=== PATIENT | female | born 1955 | race Caucasian/White ===

== ENCOUNTER 2016-06-23 22:48 | Inpatient (IN) | payer MEDICARE, BC ==
[~2016-06-23] VITALS: Ht 170.2 cm; Wt 70.3 kg
[2016-06-23 23:00] VITALS: BP 140/90
[2016-06-24] VITALS (7 sets, daily range): BP systolic 95–140; BP diastolic 57–67
[2016-06-24 00:40] LABS: BASOPHILS % (AUTO) 0.8 % (0.0-2.0); EOSINOPHILS % (AUTO) 0.7 % (0.0-3.0); LYMPHOCYTES % (AUTO) 14.7 % (20.0-45.0); MEAN CORPUSCULAR HEMOGLOBIN 25.8 PG (27.0-31.0); MEAN CORPUSCULAR VOLUME 81 FL (80-99); MEAN PLATELET VOLUME 5.7 FL (6.5-10.1); NEUTROPHILS % (AUTO) 74.7 % (45.0-75.0); PLATELET COUNT 341 K/UL (150-450); RED BLOOD COUNT 4.41 M/UL (4.20-5.40); RED CELL DISTRIBUTION WIDTH 15.1 % (11.6-14.8); WHITE BLOOD COUNT 10.1 K/UL (4.8-10.8)
[2016-06-24 00:43] LABS: APPEARANCE,URINE CLEAR; KETONES,URINE NEGATIVE (NEGATIVE); LEUKOCYTE ESTERASE ,URINE NEGATIVE (NEGATIVE); NITRITE,URINE NEGATIVE (NEGATIVE); PH,URINE 5 (4.5-8.0); PROTEIN,URINE NEGATIVE (NEGATIVE); UROBILINOGEN,URINE NORMAL MG/DL (0.0-1.0)
[2016-06-24 00:51] LABS: ALBUMIN/GLOBULIN RATIO 0.9 (1.0-2.7); CALCIUM 9.2 mg/dL (8.6-10.2); GLOMERULAR FILTRATION RATE 56.8 mL/min (>60); POTASSIUM 4.6 mEQ/L (3.4-4.9); TOTAL PROTEIN 7.1 g/dL (6.6-8.7)
[2016-06-24 00:52] LABS: RBC,URINE 0-2 /HPF (0 - 2); WBC,URINE 0 /HPF (0 - 2)
[2016-06-24 01:18] LABS: TROPONIN I < 0.30 ng/mL (<=0.30)
--- NOTE | 2016-06-24 02:23 | Emergency Room Report ---
History of Present Illness General Chief Complaint: Overdose Source: Patient, Friend, EMS Present Illness HPI Is a 60-year-old female with multiple medical problem. She has history of rheumatoid arthritis and was on methotrexate. Also was on steroid. Does medicine were held because she get frequent infection on her knees secondary to previous surgery. She just finished a 6 week course of vancomycin and then 2 weeks course of daptomycin. She presents with chief complaint is altered mental status. Per her friends, she appear to be very sleepy and hard to arouse tonight. They did not know if she was taking too much of her pain medication. She has been bedbound and nonweightbearing on her left leg. It was placed in a knee immobilizer. Now she complaining of right Achilles pain. she has a history of partial tear in that Achilles. Per EMS, she was missing some of her [place] pill. Later when patient was more awake and her friend also said that sometimes she jumped on the floor. She said she did not take anything today. She does have a history of seizure but no seizure activity. EMS gave her 2 mg of narcan w/o relief. Allergies: Coded Allergies: BUPIVACAINE (Verified Allergy, Mild, 04/30/09) UNABLE TO ASSESS (Unverified , 06/23/16) Patient History Past Medical History: see triage record, old chart reviewed Past Surgical History: other Pertinent Family History: none Social History: Denies: smoking Now: No Immunizations: other Reviewed Nursing Documentation: PMH: Agreed, PSxH: Agreed Nursing Documentation-PMH Past Medical History: No History, Except For Review of Systems Eye: Denies: blurred vision, eye pain ENT: Denies: ear pain, nose congestion, throat swelling Respiratory: Denies: cough, shortness of breath Cardiovascular: Denies: chest pain, palpitations Gastrointestinal: Denies: abdominal pain, diarrhea, nausea, vomiting Musculoskeletal: Denies: back pain, joint pain Skin: Denies: rash Neurological: Denies: headache, numbness Endocrine: Denies: increased thirst, increased urine Hematologic/Lymphatic: Denies: easy bruising All Other Systems: negative except mentioned in HPI Physical Exam Vital Signs Date Time Temp Pulse Resp B/P Pulse Ox O2 Delivery O2 Flow Rate FiO2 06/23/16 22:44 97.9 98 16 131/72 100 Non-Rebreather 15.0 vitals normal Sp02 EP Interpretation: reviewed, normal General Appearance: well appearing, no apparent distress, alert, other - sleepy Head: normocephalic, atraumatic Eyes: bilateral eye EOMI, bilateral eye PERRL ENT: hearing grossly normal, normal pharynx Neck: full range of motion, supple, no meningismus Respiratory: chest non-tender, lungs clear, normal breath sounds Cardiovascular #1: regular rate, rhythm, no murmur Gastrointestinal: normal bowel sounds, non tender, no mass, no organomegaly, no bruit, non-distended Musculoskeletal: back normal, other - rigth achilles with tenderness and mild redness. TTP. Psychiatric: mood/affect normal Skin: warm/dry Medical Decision Making Diagnostic Impression: Primary Impression: Acute encephalopathy Additional Impression: Achilles tendinitis, right leg ER Course Patient presents with an altered mental status. This may be secondary to overmedication. Drug screen is negative however. Her tenderness localized to the Achilles. I doubt this is a DVT. She is now unable to ambulate very well. She refuses to go to rehabilitation. Her friends able to convince her to stay at least overnight. She may need social service for a wheelchair. She is benign now awake and conversant. Lab Results Impression labs normal EKG Diagnostic Results Rate: normal Rhythm: NSR ST Segments: no acute changes Rhythm Strip Diag. Results EP Interpretation: yes Rate: 90 Rhythm: NSR, no PVC's, no ectopy Last Vital Signs Date Time Temp Pulse Resp B/P Pulse Ox O2 Delivery O2 Flow Rate FiO2 06/24/16 01:50 98.6 79 16 132/61 95 Nasal Cannula 3.0 Status: improved Disposition: ADMITTED INPATIENT Condition: Serious Referrals: NOT CHOSEN IPA/,REFERRING (PCP) HANG ULLOA M.D. Jun 24, 2016 02:23
[2016-06-24] MEDS ORDERED: GABAPENTIN100 MG ORAL (06:27)
[2016-06-24] MEDS ORDERED: OXYCODONE HCL5 M2 ORAL (06:27)
[2016-06-24] MEDS ORDERED: ATORVASTATIN CA10 MG ORAL (06:27)
[2016-06-24] MEDS ORDERED: KEPPRA1000 MG ORAL (06:27)
[2016-06-24] MEDS ORDERED: Miralax 17gm pkt ORAL PRN (07:30)
[2016-06-24] MEDS ORDERED: LORazepam Inj 2mg/ml 1ml IV PRN (07:30)
[2016-06-24] MEDS ORDERED: Zolpidem 5mg tab ORAL PRN (07:30)
[2016-06-24] MEDS ORDERED: Morphine Sulfate 2mg/ml Inj IVP PRN (07:30)
[2016-06-24] MEDS ORDERED: Mylanta II UD 30ml ORAL PRN (07:30)
--- NOTE | 2016-06-24 15:50 | History and Physical ---
History of Present Illness General Date patient seen: Jun 24, 2016 Reason for Hospitalization: Overdose Present Illness HPI 60-year-old female with multiple medical problems including seizure disorder, multiple orthopedic surgeries, rheumatoid arthritis and was on methotrexate. She presented to ER with chief complaint of altered mental status. She appeared to be very sleepy and hard to arouse tonight. . She has been bedbound and nonweightbearing on her left leg. she is also complaining of right Achilles pain. she has a history of partial tear in that Achilles. EMS gave her 2 mg of narcan w/o any improvement. Pt continues to be somnolent and has some slurred speech and had difficulty staying awake. Allergies: Coded Allergies: ETANERCEPT (Verified Allergy, Severe, Hives, 06/24/16) INFLIXIMAB (Verified Allergy, Severe, Anaphylaxis, 06/24/16) BUPIVACAINE (Verified Allergy, Mild, 04/30/09) HYDROMORPHONE (Verified Adverse Reaction, Unknown, headache, 06/24/16) Medication History Scheduled Atorvastatin Calcium* (Lipitor*), 10 MG ORAL BEDTIME, (Reported) Gabapentin* (Gabapentin*), 100 MG ORAL THREE TIMES A DAY, (Reported) Levetiracetam (Keppra), 1,000 MG ORAL DAILY, (Reported) Scheduled PRN Oxycodone Hcl* (Oxycodone Hcl*), 5 MG ORAL Q4H PRN for For Pain, (Reported) Patient History Healthcare decision maker Bela Solo Resuscitation status Full Code Advanced Directive on File Yes Past Medical/Surgical History Past Medical/Surgical History: (1) Acute encephalopathy (2) Achilles tendinitis, right leg Review of Systems All Other Systems: negative except mentioned in HPI Physical Exam General Appearance: WD/WN Lines, tubes and drains: peripheral HEENT: normocephalic Neck: non-tender Respiratory/Chest: chest wall non-tender Cardiovascular/Chest: normal peripheral pulses, normal rate Abdomen: normal bowel sounds, non tender Last 24 Hour Vital Signs Date Time Temp Pulse Resp B/P Pulse Ox O2 Delivery O2 Flow Rate FiO2 06/24/16 09:54 76 140/58 93 Room Air 06/24/16 08:00 97.7 68 14 95/57 97 Nasal Cannula 2.0 06/24/16 06:39 98.6 81 16 105/65 98 Nasal Cannula 3.0 06/24/16 05:49 98.6 81 16 105/65 98 Nasal Cannula 3.0 06/24/16 03:24 98.6 81 16 117/59 98 Nasal Cannula 3.0 06/24/16 01:50 98.6 79 16 132/61 95 Nasal Cannula 3.0 06/23/16 23:00 81 19 Nasal Cannula 3.0 06/23/16 23:00 98.3 81 19 140/90 98 Nasal Cannula 3.0 06/23/16 22:44 97.9 98 16 131/72 100 Non-Rebreather 15.0 Intake and Output 06/23/16 06/24/16 19:00 07:00 Intake Total 1000 ml Output Total 700 ml Balance 300 ml IV Total 1000 ml Output Urine Total 700 ml Laboratory Tests Test 06/24/16 00:08 White Blood Count 10.1 K/UL (4.8-10.8) Red Blood Count 4.41 M/UL (4.20-5.40) Hemoglobin 11.4 G/DL (12.0-16.0) L Hematocrit 35.6 % (37.0-47.0) L Mean Corpuscular Volume 81 FL (80-99) Mean Corpuscular Hemoglobin 25.8 PG (27.0-31.0) L Mean Corpuscular Hemoglobin Concent 32.0 G/DL (32.0-36.0) Red Cell Distribution Width 15.1 % (11.6-14.8) H Platelet Count 341 K/UL (150-450) Mean Platelet Volume 5.7 FL (6.5-10.1) L Neutrophils (%) (Auto) 74.7 % (45.0-75.0) Lymphocytes (%) (Auto) 14.7 % (20.0-45.0) L Monocytes (%) (Auto) 9.0 % (1.0-10.0) Eosinophils (%) (Auto) 0.7 % (0.0-3.0) Basophils (%) (Auto) 0.8 % (0.0-2.0) Erythrocyte Sedimentation Rate Pending Urine Color Pale yellow Urine Appearance Clear Urine pH 5 (4.5-8.0) Urine Specific [place] 1.015 (1.005-1.035) Urine Protein Negative (NEGATIVE) Urine Glucose (UA) Negative (NEGATIVE) Urine Ketones Negative (NEGATIVE) Urine Occult Blood Negative (NEGATIVE) Urine Nitrite Negative (NEGATIVE) Urine Bilirubin Negative (NEGATIVE) Urine Urobilinogen Normal MG/DL (0.0-1.0) Urine Leukocyte Esterase Negative (NEGATIVE) Urine RBC 0-2 /HPF (0 - 2) Urine WBC 0 /HPF (0 - 2) Urine Squamous Epithelial Cells None /LPF (NONE/OCC) Urine Bacteria None /HPF (NONE) Sodium Level 133 mEQ/L (135-145) L Potassium Level 4.6 mEQ/L (3.4-4.9) Chloride Level 91 mEQ/L (98-107) L Carbon Dioxide Level 26 mEQ/L (20-30) Anion Gap 16 (5-15) H Blood Urea Nitrogen 14 mg/dL (7-23) Creatinine 1.0 mg/dL (0.5-0.9) H Estimat Glomerular Filtration Rate 56.8 mL/min (>60) Glucose Level 110 mg/dL (74-106) H Calcium Level 9.2 mg/dL (8.6-10.2) Total Bilirubin 0.4 mg/dL (0.0-1.2) Aspartate Amino Transf (AST/SGOT) 20 U/L (5-40) Alanine Aminotransferase (ALT/SGPT) 7 U/L (3-33) Alkaline Phosphatase 97 U/L (35-104) Total Creatine Kinase Pending Creatine Kinase MB Pending Troponin I < 0.30 ng/mL (<=0.30) Total Protein 7.1 g/dL (6.6-8.7) Albumin 3.5 g/dL (3.5-5.2) Globulin 3.6 g/dL Albumin/Globulin Ratio 0.9 (1.0-2.7) L Vitamin B12 Level Pending Urine Opiates Screen Negative (NEGATIVE) Urine Barbiturates Screen Negative (NEGATIVE) Phencyclidine (PCP) Screen Negative (NEGATIVE) Urine Amphetamines Screen Negative (NEGATIVE) Urine Benzodiazepines Screen Negative (NEGATIVE) Urine Cocaine Screen Negative (NEGATIVE) Urine Marijuana (THC) Screen Negative (NEGATIVE) Height (Feet): 5 Height (Inches): 7.00 Weight (Pounds): 155 Medications Current Medications Medications (Trade) Dose Ordered Sig/Joseph Route PRN Reason Start Time Stop Time Status Last Admin Dose Admin Acetaminophen (Tylenol) 650 mg Q4H PRN ORAL fever 06/24/16 07:30 07/24/16 07:29 Al Hydroxide/Mg Hydroxide (Mylanta II) 30 ml Q6H PRN ORAL dyspepsia 06/24/16 07:30 07/24/16 07:29 Atorvastatin Calcium (Lipitor) 10 mg BEDTIME ORAL 06/24/16 21:00 07/24/16 20:59 Dextrose (Dextrose 50%) STAT PRN IV Hypoglycemia 06/24/16 07:30 07/24/16 07:29 Gabapentin (Neurontin) 100 mg THREE TIMES A DAY ORAL 06/24/16 09:00 07/24/16 08:59 06/24/16 10:02 Levetiracetam (Keppra) 1,000 mg DAILY ORAL 06/24/16 09:00 07/24/16 08:59 06/24/16 10:02 Lorazepam (Ativan 2mg/ml 1ml) 0.5 mg Q4H PRN IV For Anxiety 06/24/16 07:30 07/01/16 07:29 Morphine Sulfate (Morphine Sulfate) 1 mg EVERY 4 HOURS PRN IVP For Pain 06/24/16 07:30 07/01/16 07:29 Ondansetron HCl (Zofran) 4 mg Q6H PRN IVP Nausea & Vomiting 06/24/16 07:30 07/24/16 07:29 Polyethylene Glycol (Miralax) 17 gm HSPRN PRN ORAL Constipation 06/24/16 07:30 07/24/16 07:29 Zolpidem Tartrate (Ambien) 5 mg HSPRN PRN ORAL Insomnia 06/24/16 07:30 07/24/16 07:29 Assessment/Plan Problem List: (1) Acute encephalopathy ICD Codes: G93.40 - Encephalopathy, unspecified SNOMED: 1746528 (2) Achilles tendinitis, right leg ICD Codes: M76.61 - Achilles tendinitis, right leg SNOMED: 77660941 Assessment/Plan Neuro evaluation hold narcotics psych evaluation MRI of brain MIKAEL BLAKE Jun 24, 2016 15:50
[2016-06-24 16:07] LABS: CKMB < 1.5 ng/mL (< 3.8)
[2016-06-24] MEDS: Ketorolac 30mg Inj IV PRN (18:50)
[2016-06-24] MEDS: HYDROmorphone 1mg/ml Carpuject IVP PRN (22:06)
[2016-06-25] VITALS: BP 127/69
--- NOTE | 2016-06-25 00:18 | Consultation ---
DATE OF CONSULTATION: 06/24/2016 NEUROLOGICAL CONSULTATION CONSULTING PHYSICIAN: Ricardo Coello M.D. REFERRING PHYSICIAN: Joseph Whitt M.D. HISTORY OF PRESENT ILLNESS: This is a 60-year-old female, seen in neurological consultation to evaluate transient episode of unresponsiveness in the setting of chronic seizure disorder, and the new onset of severe right ankle pain. According to the family members who were present during this examination, the patient was observed on several occasions with episodes of hypersomnia, lethargy and unresponsiveness, which would last several hours. She was doing fairly well on the day prior to admission, but yesterday morning she become very lethargic, this lethargy has remained through the day. For this, she was brought to the emergency room. In addition, the patient complained of new onset of severe right Achilles pain provoked by foot movement. With this, she was brought to the emergency room, she become fully awake. She was unable to recall. She was amnestic on the event of the day. There was no evidence of tongue biting, urine or bowel incontinence noted. On admission, vital signs were stable. Blood pressure was 117/59 and temperature down to 95 or 57, she was afebrile. Venous duplex of the both lower extremities revealed no evidence of DVT. Lab work was obtained. This revealed mild anemia. Hemoglobin 11.4 and hematocrit 35.6. Chemistry panel, sodium 133, anion gap of 16, creatinine 1.0, and glucose 110. Toxicology panel was negative and urinalysis was normal. Following admission until present, there were no further paroxysmal activities. The patient continued with complains of acute right Achilles pain. Family now recalled that yesterday she was found to be in bed, unresponsive, but with a shallow breathing, diaphoretic, and with the pupils nonreactive to light. PAST MEDICAL HISTORY: The patient has a history of chronic seizure disorder, partial complex with occasional secondary generalization starting in 2003. The patient had an initial seizure. The patient reports of having a status epilepticus lasting 6 hours following which she has a decreased decline in her memory. She was given different anticonvulsants, but she recall that she is currently only on Keppra 500 mg at bedtime. In addition, she was on Neurontin 2400 mg at bedtime. The patient is under the care of neurologist who is monitoring her treatment. The patient has a history of rheumatoid arthritis. She used to be on methotrexate, but over the last few months she was off of treatment. Within the last year, she had several surgeries including bilateral total knee replacement, bilateral hip replacement. She has a history of partial bowel attention. She has status post right-sided tendinitis, which was infected, required additional surgery. The patient was known to have infection in her left knee postsurgical, for this she was on 6 weeks course of vancomycin and 2 weeks course of daptomycin. The patient has a history of gastroparesis lasting 5 months, now resolved. Currently, she is maintained on pain management using oxycodone 5 mg q.4 hours p.r.n. She was on gabapentin and Lipitor. ALLERGIES: Etanercept, hydromorphone, infliximab, and bupivacaine. FAMILY HISTORY: Noncontributory. SOCIAL HISTORY: She lives alone. She has a close friend, who is helping her. No alcohol. No drug abuse. Nonsmoker. REVIEW OF SYSTEMS: Currently, the patient complains of having right Achilles pain, generalized twitches, which is chronic. She had a brief headache yesterday. No dizzy spells. No hearing. No visual abnormalities. She acknowledge of having memory issues. Denies shortness of breath. Denies abdominal pain or discomfort. No urine or bowel incontinence. PHYSICAL EXAMINATION: GENERAL: A well-developed, moderately obese female, not in acute distress, lying comfortably in bed. Her friends and family are at bedside. VITAL SIGNS: Now stable. Blood pressure 140/68 and temperature 97.7 degrees. HEENT: Head is normocephalic. No evidence of trauma. Eyes, ears, and throat are clear. NECK: Supple. No meningeal signs. MUSCULOSKELETAL EXAMINATION: The examination included left knee being in brace. There is acute pain on a mild touch to the right Achilles within that area. No deformities. No discoloration. Peripheral pulses 1+ symmetric. MENTAL STATUS: The patient is alert and oriented x3. Speech is fluent, although she has some word-finding difficulties, and she is quite forgetful. She was unable to go with serial 7. She was unable to recall any of three words in three minutes, but she was able to recall last president of [place]. She remained coherent, although it appears that occasionally inappropriate. CRANIAL NERVE II: Pupils both responding to light and accommodation. Extraocular movement intact. No nystagmus. CRANIAL NERVE V: Normal corneal responses. CRANIAL NERVE VII: No facial asymmetry. CRANIAL NERVE VIII: Normal hearing. CRANIAL NERVE IX THROUGH XII: Within normal limits. MOTOR EXAMINATION: Normal muscle tone and strength in both upper extremities. The patient was in left leg brace, but efforts in her left foot flexion and extension is somewhat limited. She was avoiding to move her right foot due to acute pain in her Achilles ligament area. Deep tendon reflexes were 1+ bilaterally symmetric. Plantar responses are flexor. SENSORY EXAMINATION: The patient was convinced that she has no pin sensation to face and body. Gait is not tested. IMPRESSION: 1. This is a 60-year-old female with a history of partial complex seizure disorder, now presenting with intermittent episodes of unresponsiveness, lethargy, unknown etiology, rule out nonconvulsive seizure event. No cause of seizure event. 2. Rule out acute right Achilles tear, presenting with acute pain. 3. History of status epilepticus with presumed anoxic encephalopathy now presenting with a cognitive loss. 4. Rheumatoid arthritis. 5. Status post multiple surgical procedures with an infected left knee. DISCUSSION: The patient presented with a full day of being unresponsive, lethargic, with no evidence of drug intoxication or presence of significant metabolic derangement to explain it. Nonconvulsive seizure activities are now considered. The patient indicates that she had no recent workup and I will obtain electroencephalogram as well as MRI of the brain. Severe right Achilles ligament pain may indicate acute ligamentous tear. We will obtain MRI of the right ankle while orthopedic assessment is pending. The patient is maintained on a low dose of Keppra 500 mg daily. She is afraid to have higher doses due to unspecified side effects. I will increase to 750 mg daily, which may need further titration. The patient will continue with the current supportive treatment. Lab work to include B12, folate, liver function, ammonia level, vitamin D, and vitamin E levels. Thank you for allowing me to see this interesting patient in neurological consultation. Ricardo Coello M.D. DR: NIHARIKA JOB#: [id number] CC:
[2016-06-25 04:00] VITALS: BP 121/72
[2016-06-25] MEDS: HYDROmorphone 1mg/ml Carpuject IVP PRN ×5 (06:19→21:51)
[2016-06-25 07:09] LABS: BASOPHILS % (AUTO) 0.9 % (0.0-2.0); EOSINOPHILS % (AUTO) 5.1 % (0.0-3.0); LYMPHOCYTES % (AUTO) 30.2 % (20.0-45.0); MEAN CORPUSCULAR HEMOGLOBIN 24.9 PG (27.0-31.0); MEAN CORPUSCULAR HGB CONC 31.5 G/DL (32.0-36.0); MEAN CORPUSCULAR VOLUME 79 FL (80-99); MEAN PLATELET VOLUME 5.9 FL (6.5-10.1); MONOCYTES % (AUTO) 10.5 % (1.0-10.0); NEUTROPHILS % (AUTO) 53.2 % (45.0-75.0); PLATELET COUNT 366 K/UL (150-450); RED BLOOD COUNT 4.53 M/UL (4.20-5.40); RED CELL DISTRIBUTION WIDTH 15.4 % (11.6-14.8); WHITE BLOOD COUNT 6.7 K/UL (4.8-10.8)
[2016-06-25 07:28] LABS: ALBUMIN/GLOBULIN RATIO 1.3 (1.0-2.7); CALCIUM 9.4 mg/dL (8.6-10.2); CHOLESTEROL/HDL RATIO 2.6 (3.3-4.4); GLOMERULAR FILTRATION RATE 56.8 mL/min (>60); POTASSIUM 4.5 mEQ/L (3.4-4.9); TOTAL PROTEIN 6.1 g/dL (6.6-8.7)
[2016-06-25 07:34] LABS: THYROID STIMULATING HORMONE 4.11 uIU/mL (0.300-4.500)
[2016-06-25 08:00] VITALS: BP 114/63
--- NOTE | 2016-06-25 09:45 | Diagnostic Imaging Report ---
Indication: Altered mental status Technique: sagittal T1 fast spin echo, axial T1 FLAIR, axial T2 FLAIR, axial T2 FS PROPELLER, axial T2* GRE, axial diffusion weighted images. ADC and exponential ADC maps generated Comparison: None Findings: No abnormal areas of restricted diffusion to suggest acute infarction. No acute hemorrhage or edema. No mass effect nor midline shift. Normal size ventricles and extra axial CSF spaces. There is minimal left maxillary sinus disease. There is minimal deep white matter and periventricular chronic ischemic change. Vascular flow-voids are preserved Impression: Minimal periventricular chronic deep white matter T2 hyperintensity, most likely chronic ischemic change Negative for acute intracranial bleed, mass effect, or infarct
--- NOTE | 2016-06-25 11:13 | Neurology Progress Note ---
Interim History Interim History ROS Limited/Unobtainable: No Complaints: R ankle pain Events: less pain Objective Physical Exam Last Vital Signs Date Time Temp Pulse Resp B/P Pulse Ox O2 Delivery O2 Flow Rate FiO2 06/25/16 08:00 98.2 73 14 114/63 97 Room Air 06/24/16 16:18 2.0 28 Laboratory Tests Test 06/24/16 19:50 06/25/16 04:45 Ammonia 26 umol/L (11-51) Vitamin D 25-Hydroxy Pending 25-Hydroxy Vitamin D2 Pending 25-Hydroxy Vitamin D3 Pending Anti-Nuclear Antibody Screen Pending White Blood Count 6.7 K/UL (4.8-10.8) Red Blood Count 4.53 M/UL (4.20-5.40) Hemoglobin 11.3 G/DL (12.0-16.0) L Hematocrit 35.7 % (37.0-47.0) L Mean Corpuscular Volume 79 FL (80-99) L Mean Corpuscular Hemoglobin 24.9 PG (27.0-31.0) L Mean Corpuscular Hemoglobin Concent 31.5 G/DL (32.0-36.0) L Red Cell Distribution Width 15.4 % (11.6-14.8) H Platelet Count 366 K/UL (150-450) Mean Platelet Volume 5.9 FL (6.5-10.1) L Neutrophils (%) (Auto) 53.2 % (45.0-75.0) Lymphocytes (%) (Auto) 30.2 % (20.0-45.0) Monocytes (%) (Auto) 10.5 % (1.0-10.0) H Eosinophils (%) (Auto) 5.1 % (0.0-3.0) H Basophils (%) (Auto) 0.9 % (0.0-2.0) Sodium Level 138 mEQ/L (135-145) Potassium Level 4.5 mEQ/L (3.4-4.9) Chloride Level 96 mEQ/L (98-107) L Carbon Dioxide Level 27 mEQ/L (20-30) Anion Gap 15 (5-15) Blood Urea Nitrogen 14 mg/dL (7-23) Creatinine 1.0 mg/dL (0.5-0.9) H Estimat Glomerular Filtration Rate 56.8 mL/min (>60) Glucose Level 95 mg/dL (74-106) Calcium Level 9.4 mg/dL (8.6-10.2) Total Bilirubin 0.2 mg/dL (0.0-1.2) Aspartate Amino Transf (AST/SGOT) 20 U/L (5-40) Alanine Aminotransferase (ALT/SGPT) 6 U/L (3-33) Alkaline Phosphatase 92 U/L (35-104) Total Protein 6.1 g/dL (6.6-8.7) L Albumin 3.5 g/dL (3.5-5.2) Globulin 2.6 g/dL Albumin/Globulin Ratio 1.3 (1.0-2.7) Triglycerides Level 74 mg/dL (< 150) Cholesterol Level 110 mg/dL (< 200) LDL Cholesterol 52 mg/dL (60-99) L HDL Cholesterol 43 mg/dL (> 60) Cholesterol/HDL Ratio 2.6 (3.3-4.4) L Thyroid Stimulating Hormone (TSH) 4.110 uIU/mL (0.300-4.500) General: well developed, well nourished, no acute distress, other - very tender R achilles Head: normocophalic, atraumatic Neck: no rigidity Neurologic Exam Mental Status: awake, alert, other - forgetful poor attention Speech: normal speech, no dysarthia Language: other - word finding difficulty Cranial Nerve II: no papilledema Cranial Nerves III, IV, : PERRLA, EOMI, pupils Cranial Nerve V: normal facial sensations, temporales function normal, masseters function normal, pterygoids function normal Cranial Nerve VII: no facial asymmetry, normal facial expressions Cranial Nerve VIII: normal hearing, no nystagmus Cranial Nerve IX: normal palate elevation, gag response Cranial Nerve X: no voice hoarseness Cranial Nerve XI: SCM symmetric, trapezii function normal Cranial Nerve XII: tongue midline, no tongue atrophy/fasciculations Motor System: normal muscle tone, no involuntary movement, no muscle wasting, other - poor efforts BLE 2/2 pain Sensory: other - global lack of responce to pin prick Coordination: normal finger to nose bilaterally Deep Tendon Reflexes: 1+ ankle (L), 1+ ankle (R), 1+ bicep (L), 1+ bicep (R), 1 + brachioradialis (L), 1+ brachioradialis (R), 1+ knee (L), 1+ knee (R), 1+ tricep (L), 1+ tricep (R) Reflexes: mute plantar (L), mute plantar (R) Impression/Recommendations Problems: (1) Encephalopathy with cognitive loss , multifactorial. (2) chronic seizure disorder (3) Achilles tendinitis, right leg Status: stable Recommendations MRI BRAIN mild atrophy EEG c/w mild-moderate encephalopathy, no sz noted keppra 1000mg q hs orto eval MRI R carole TELLOMAN Jun 25, 2016 11:13
[2016-06-25 12:00] VITALS: BP 121/79
[2016-06-25 16:00] VITALS: BP 135/85
--- NOTE | 2016-06-25 16:09 | Electroencephalogram ---
DATE OF PROCEDURE: 06/24/2016 ELECTROENCEPHALOGRAPHY REPORT REQUESTING PHYSICIAN: Joseph Whitt M.D. HISTORY: The patient is a 60-year-old female with intermittent episodes of unresponsiveness, unknown etiology. The patient has a history of seizure disorder. MEDICATIONS: Current treatment include Keppra, Neurontin and Ambien. TECHNIQUE: EEG was done using 18 electrodes placed scalp to scalp, scalp to ear montages according to 10/20 International System. During the recording, the patient was awake or drowsy, but poorly cooperative. Multiple sweat and movement artifacts noted throughout the recording. Most wakeful portions of recording consists of well regulated 6-7 cycles per second theta activities bilaterally with good response to physiological stimulation. No asymmetry from [id number]. No spike or wave activities noted. Epochs of slowing of 6 per second noted corresponding to sleep stages. IMPRESSION: Abnormal electroencephalogram compatible with diffuse mild to moderate encephalopathy. COMMENT: The above abnormality is a nonspecific finding, may reflect toxic metabolic derangement, diffuse structural abnormalities or postictal state. Absence of seizure activities on a current recording does not rule out seizure disorder. Ricardo Coello M.D. DR: AUGIE JOB#: [id number] CC:
--- NOTE | 2016-06-25 16:35 | Diagnostic Imaging Report ---
Indication: Right ankle pain Technique: Sagittal T2 fat saturated, sagittal and coronal T1 fast spin echo, axial proton density fat-saturated,, coronal and axial FSE STIR, axial proton density images of the right ankle Comparison: None Findings: There is a sizable area of high due to signal within the Achilles tendon. This measures approximately 22 mm in length by 9 mm transverse by 5 mm AP. It is approximately 3 cm above the attachment to the calcaneus. The tendon appears to be intact with no evidence of complete rupture. There is no evidence of joint effusion. Ligaments and tendons appear to be intact. There is normal bony alignment. No significant bone marrow signal abnormality is demonstrated. Impression: Positive for abnormal high T2 signal within the Achilles tendon, consistent with high-grade tear.. No other acute or significant abnormality
--- NOTE | 2016-06-25 18:27 | Pulmonology Progress Note ---
Assessment/Plan Problems: (1) Acute encephalopathy (2) Achilles tendinitis, right leg Assessment/Plan neuro f/u mri of right achilles showed severe damage ortho called. Subjective ROS Limited/Unobtainable: No Interval Events: mental status improved Allergies: Coded Allergies: ETANERCEPT (Verified Allergy, Severe, Hives, 06/24/16) INFLIXIMAB (Verified Allergy, Severe, Anaphylaxis, 06/24/16) BUPIVACAINE (Verified Allergy, Mild, 04/30/09) Objective Last 24 Hour Vital Signs Date Time Temp Pulse Resp B/P Pulse Ox O2 Delivery O2 Flow Rate FiO2 06/25/16 16:00 98.2 93 18 135/85 96 Room Air 06/25/16 12:00 98.2 80 18 121/79 95 Room Air 06/25/16 08:00 98.2 73 14 114/63 97 Room Air 06/25/16 04:00 97.8 68 18 121/72 97 Room Air 06/25/16 00:00 98.4 86 18 127/69 90 Room Air 06/24/16 20:00 98.2 83 18 123/67 90 Room Air Intake and Output 06/24/16 06/25/16 19:00 07:00 Intake Total 480 ml 200 ml Output Total 2400 ml Balance 480 ml -2200 ml Intake Oral 480 ml 200 ml Output Urine Total 2400 ml Objective General Appearance: WD/WN HEENT: normocephalic Respiratory/Chest: chest wall non-tender, lungs clear Cardiovascular: normal peripheral pulses, normal rate Abdomen: normal bowel sounds Genitourinary: normal external genitalia General Appearance: WD/WN Laboratory Tests 06/24/16 19:50: Ammonia 26, Vitamin D 25-Hydroxy [Pending], 25-Hydroxy Vitamin D2 [Pending], 25- Hydroxy Vitamin D3 [Pending], Anti-Nuclear Antibody Screen [Pending] 06/25/16 04:45: White Blood Count 6.7, Red Blood Count 4.53, Hemoglobin 11.3L, Hematocrit 35.7L , Mean Corpuscular Volume 79L, Mean Corpuscular Hemoglobin 24.9L, Mean Corpuscular Hemoglobin Concent 31.5L, Red Cell Distribution Width 15.4H, Platelet Count 366, Mean Platelet Volume 5.9L, Neutrophils (%) (Auto) 53.2, Lymphocytes (%) (Auto) 30.2, Monocytes (%) (Auto) 10.5H, Eosinophils (%) (Auto) 5.1H, Basophils (%) (Auto) 0.9, Sodium Level 138, Potassium Level 4.5, Chloride Level 96L, Carbon Dioxide Level 27, Anion Gap 15, Blood Urea Nitrogen 14, Creatinine 1.0H, Estimat Glomerular Filtration Rate 56.8, Glucose Level 95, Calcium Level 9.4, Total Bilirubin 0.2, Aspartate Amino Transf (AST/SGOT) 20, Alanine Aminotransferase (ALT/SGPT) 6, Alkaline Phosphatase 92, Total Protein 6.1L, Albumin 3.5, Globulin 2.6, Albumin/Globulin Ratio 1.3, Triglycerides Level 74, Cholesterol Level 110, LDL Cholesterol 52L, HDL Cholesterol 43, Cholesterol/HDL Ratio 2.6L, Thyroid Stimulating Hormone (TSH) 4.110 Current Medications Medications (Trade) Dose Ordered Sig/Joseph Route PRN Reason Start Time Stop Time Status Last Admin Dose Admin Acetaminophen (Tylenol) 650 mg Q4H PRN ORAL fever 06/24/16 07:30 07/24/16 07:29 Al Hydroxide/Mg Hydroxide (Mylanta II) 30 ml Q6H PRN ORAL dyspepsia 06/24/16 07:30 07/24/16 07:29 Atorvastatin Calcium (Lipitor) 10 mg BEDTIME ORAL 06/24/16 21:00 07/24/16 20:59 06/24/16 22:01 Dextrose (Dextrose 50%) STAT PRN IV Hypoglycemia 06/24/16 07:30 07/24/16 07:29 Gabapentin (Neurontin) 300 mg BEDTIME ORAL 06/25/16 21:00 07/25/16 20:59 Hydromorphone HCl (Dilaudid) 1 mg Q3H PRN IVP Severe Pain Unrelieved by Keto 06/24/16 21:15 07/01/16 21:14 06/25/16 12:36 Ketorolac Tromethamine (Toradol 30mg) 15 mg Q6H PRN IV Severe Pain (Pain Scale 7-10) 06/24/16 18:30 06/29/16 18:29 06/24/16 18:50 Levetiracetam (Keppra) 1,000 mg QHS ORAL 06/25/16 21:00 07/25/16 20:59 Lorazepam (Ativan 2mg/ml 1ml) 0.5 mg Q4H PRN IV For Anxiety 06/24/16 07:30 07/01/16 07:29 Ondansetron HCl (Zofran) 4 mg Q6H PRN IVP Nausea & Vomiting 06/24/16 07:30 07/24/16 07:29 Polyethylene Glycol (Miralax) 17 gm HSPRN PRN ORAL Constipation 06/24/16 07:30 07/24/16 07:29 Zolpidem Tartrate (Ambien) 5 mg HSPRN PRN ORAL Insomnia 06/24/16 07:30 07/24/16 07:29 MIKAEL BLAKE Jun 25, 2016 18:27
[2016-06-25 20:00] VITALS: BP 135/85
[2016-06-26] VITALS: BP 131/88
[2016-06-26] MEDS: Ketorolac 30mg Inj IV PRN ×3 (01:58→20:23)
[2016-06-26] MEDS: HYDROmorphone 1mg/ml Carpuject IVP PRN ×2 (03:18→21:40)
[2016-06-26 04:08] VITALS: BP 122/75
--- NOTE | 2016-06-26 08:33 | Consultation ---
Consult Note Consult Note 60 yo female with rt ankle pain MRI with partial Achilles tendon tear. Already feeling better Mild TTP over Achilles- tendon is continuous- no defect noted. NO swelling, erythema, n/v intact. Left knee in Knee immobilizer s/p revision TKA with Dr. Baker Assessment/Plan Rt ankle partial Achilles tendon tear Left revision TKA by Dr. Baker 1. Walking boot to Rt ankle 2. Ice 3. Mobic 4. PT- WBAT in boot 5. F/u Dr. Baker as outpt regarding post op left knee 6. Will be happy yo see pt as outpt to f/u on tx for Rt Achilles. No immediate need for surgical intervention RACHELLE BISWAS Jun 26, 2016 08:33
[2016-06-26 08:45] VITALS: BP 134/80
[2016-06-26] MEDS: Meloxicam 15 MG TAB ORAL SCH (09:19)
[2016-06-26 12:46] VITALS: BP 126/76
--- NOTE | 2016-06-26 16:28 | Consultation ---
DATE OF CONSULTATION: ORTHOPEDIC CONSULT HISTORY: The patient is a pleasant 60-year-old female, who was admitted for altered mental status and seizure activity witnessed by a friend. She does have a history of seizure disorder, however, the somnolence and altered mental status was new. She was presumed to have narcotic overdose, but was given Narcan and had no change in response. She was worked up by EMS at the scene as well as [facility] ER staff. She has been seen by Internal Medicine, Dr. Whitt and neurologist, Dr. Coello. Her mental status has improved considerably and the patient has been complaining of right ankle pain for which orthopedic consult was called. She has a history of a partial tear of the Achilles and this is stabilized conservatively previously. She recently underwent a revision left total knee arthroplasty with Dr. Leo Baker and has been favoring her right side due to left-sided limping and immobility. She feels this may have brought about her right ankle pain. MRI has been done during this admission revealing partial Achilles tendon tear with medication ordered. The patient is already feeling better. She has not been doing much walking yet as it is painful. PAST MEDICAL HISTORY: Seizure disorder, rheumatoid arthritis, and recent altered mental status. PAST SURGICAL HISTORY: She had a primary left knee arthroplasty in 1999. She had a revision done in 2016 and after loosening had a third revision done with Dr. Leo Baker three months ago. MEDICATIONS: Please see chart. ALLERGIES: Bupivacaine, Etanercept, and infliximab. REVIEW OF SYSTEMS: The patient currently denies fever, chills, shortness of breath, headaches, or dizziness. She does complain of right ankle pain as well as left knee stiffness. PHYSICAL EXAM: She is very pleasant. She is awake and alert. She is able to answer questions appropriately, although she is a poor historian with regards to dates. Most of the dates obtained in the history are from charting. She has no major swelling about the right ankle. There is no redness, erythema, or signs of infection. She has tenderness over the Achilles about 3 cm from its insertion on the calcaneus. There is no defect to the Achilles noted. There is no significant swelling there. She is able to dorsi and plantar flex although she has some tightness. Examination of the left knee, she is in a knee immobilizer with a bandage dressing. The patient does indicate that she was recently treated for some wound infection and she is following up with Dr. Baker and outpatient Infectious Disease for this. DIAGNOSTIC DATA: MRI of the right ankle is reviewed. There is a partial tear of the Achilles tendon without a complete tear. Majority of tendon fibers are intact. IMPRESSION: 1. Right ankle partial Achilles tendon tear, already improving. 2. Left knee revision arthroplasty by Dr. Baker, continuing to follow up as an outpatient. DISCUSSION: At this time, I discussed with the patient my findings. With regards to the knee, we will ask her to keep following up with Dr. Baker as well as any Infectious Disease physician she is still seeing regarding for her wound infection. With regards to the ankle, we will recommend a CAM walker boot for her so that she can ambulate. Recommend some anti-inflammatories as well as ice and gentle physical therapy. At this time, the patient does not need immediate surgical intervention although she understands that should pain continue, surgical debridement may be beneficial for her. At this time, she is looking to avoid surgery as she is still recovering from her left knee surgery and I certainly agree with that. We will have her receive some gentle physical therapy while here in the hospital and should continue outpatient physical therapy once she is discharged. I will be happy to follow up with her on an outpatient basis for continued care for right ankle fracture. All the patient's questions were answered. Riccardo Cruz M.D. Juan Carlos King DR: ELISSA JOB#: [id number] CC: GAURAV
[2016-06-26 16:39] VITALS: BP 138/78
--- NOTE | 2016-06-26 19:55 | Neurology Progress Note ---
Interim History Interim History Interim History Ms. Tavera feels much better today. The mind has cleared up completely. She thinks she may have taken some extra oxycodone without realizing it. The right ankle is still painful. She has not been told if she can walk or not. She does not thik that she has had any seizures recently. Review of Systems Neuro Review of Systems Benign. Objective Physical Exam Last Vital Signs Date Time Temp Pulse Resp B/P Pulse Ox O2 Delivery O2 Flow Rate FiO2 06/26/16 16:39 97.0 72 20 138/78 98 Room Air 06/25/16 19:30 21 06/24/16 16:18 2.0 Neurologic Exam Objective NEUROLOGIC EXAMINATION: MENTAL STATUS EXAMINATION: She was awake and alert. She was oriented to person place and time. She was able to recall 3/3 words immediately and could remember them in 1 and 3 minutes. She was able to calculate well. Her visuospatial function was preserved. SPEECH: Normal. LANGUAGE: Normal CRANIAL NERVE EXAMINATION: II through XII: Intact. MOTOR EXAMINATION: Normal tone and mass except for left lower extremity which could not be tested as it was in an immobilizer. Power was G 5/5 except for left knee and right ankle that could not be tested. SENSORY EXAMINATION: Intact to pin prick and light touch. REFLEXES: 2+ and bilaterally symmetrical at the biceps triceps and brachioradialis. 2+ at the right knee. 1+ at the left ankle. The plantar responses were flexor bilaterally. COORDINATION: Finger to nose testing was normal STANCE & GAIT: Could not be tested. Impression/Recommendations Diagnostic Impression 1. Ms. Vivian King is a 60-year-old, right handed, lady with a history of a partial complex seizure disorder, who presenting with intermittent episodes of unresponsiveness and lethargy, 2. She now remembers that she was using oxycodone and may have used a little more than usual. 3. On neurologic examination her mental state has returned to normal and the rest of the examination is non-focal. The right ankle and left knee are still painful and cannot be tested adequately. 4. The EEG reveled an encephalopathy but no inter-ictalor ictal phenomena. 5. The right ankle pain is from a right Achilles tendon tear. 6. Her encephalopathy was most probably drug-induced and has now resolved. Recommendations 1. Continue present management. 2. Continue Keppra 1 G q HS. 3. Mobilize when orthopedist deems it safe. Maria Del Carmen Mendez M.D., M.S.P.H. MARIA DEL CARMEN MENDEZ Jun 26, 2016 19:55
[2016-06-26 20:00] VITALS: BP 141/88
--- NOTE | 2016-06-26 22:15 | Pulmonology Progress Note ---
Assessment/Plan Problems: (1) Acute encephalopathy (2) Achilles tendinitis, right leg Assessment/Plan neuro f/u mri of right achilles showed severe damage ortho called. Subjective Allergies: Coded Allergies: ETANERCEPT (Verified Allergy, Severe, Hives, 06/24/16) INFLIXIMAB (Verified Allergy, Severe, Anaphylaxis, 06/24/16) BUPIVACAINE (Verified Allergy, Mild, 04/30/09) Objective Last 24 Hour Vital Signs Date Time Temp Pulse Resp B/P Pulse Ox O2 Delivery O2 Flow Rate FiO2 06/26/16 19:30 Room Air 21 06/26/16 19:30 94 Room Air 21 06/26/16 16:39 97.0 72 20 138/78 98 Room Air 06/26/16 12:46 97.2 85 20 126/76 98 Room Air 06/26/16 08:45 97.0 65 20 134/80 96 Room Air 06/26/16 04:08 97.7 74 18 122/75 92 Room Air 06/26/16 00:00 99.0 86 19 131/88 90 Room Air Intake and Output 06/25/16 06/26/16 19:00 07:00 Intake Total 240 ml 480 ml Output Total 1150 ml 600 ml Balance -910 ml -120 ml Intake Oral 240 ml 480 ml Output Urine Total 1150 ml 600 ml # Voids 2 Objective General Appearance: WD/WN HEENT: normocephalic Respiratory/Chest: chest wall non-tender, lungs clear Cardiovascular: normal peripheral pulses, normal rate Abdomen: normal bowel sounds Genitourinary: normal external genitalia Current Medications Medications (Trade) Dose Ordered Sig/Joseph Route PRN Reason Start Time Stop Time Status Last Admin Dose Admin Acetaminophen (Tylenol) 650 mg Q4H PRN ORAL fever 06/24/16 07:30 07/24/16 07:29 Al Hydroxide/Mg Hydroxide (Mylanta II) 30 ml Q6H PRN ORAL dyspepsia 06/24/16 07:30 07/24/16 07:29 Atorvastatin Calcium (Lipitor) 10 mg BEDTIME ORAL 06/24/16 21:00 07/24/16 20:59 06/26/16 20:23 Dextrose (Dextrose 50%) STAT PRN IV Hypoglycemia 06/24/16 07:30 07/24/16 07:29 Gabapentin (Neurontin) 300 mg BEDTIME ORAL 06/25/16 21:00 07/25/16 20:59 06/26/16 20:23 Hydromorphone HCl (Dilaudid) 1 mg Q3H PRN IVP Severe Pain Unrelieved by Keto 06/24/16 21:15 07/01/16 21:14 06/26/16 21:40 Ketorolac Tromethamine (Toradol 30mg) 15 mg Q6H PRN IV Severe Pain (Pain Scale 7-10) 06/24/16 18:30 06/29/16 18:29 06/26/16 20:23 Levetiracetam (Keppra) 1,000 mg QHS ORAL 06/25/16 21:00 07/25/16 20:59 06/26/16 20:23 Lorazepam (Ativan 2mg/ml 1ml) 0.5 mg Q4H PRN IV For Anxiety 06/24/16 07:30 07/01/16 07:29 Meloxicam (Mobic) 15 mg DAILY ORAL 06/26/16 09:00 07/26/16 08:59 06/26/16 09:19 Ondansetron HCl (Zofran) 4 mg Q6H PRN IVP Nausea & Vomiting 06/24/16 07:30 07/24/16 07:29 Polyethylene Glycol (Miralax) 17 gm HSPRN PRN ORAL Constipation 06/24/16 07:30 07/24/16 07:29 Zolpidem Tartrate (Ambien) 5 mg HSPRN PRN ORAL Insomnia 06/24/16 07:30 07/24/16 07:29 MIKAEL BLAKE Jun 26, 2016 22:15
--- NOTE | 2016-06-26 23:09 | Diagnostic Imaging Report ---
APPROVED REPORT CPT Code: 90725 Present Symptoms Comments: Post-Op left Knee Pain BILATERAL: Imaging reveals a patent deep venous system bilaterally. There is no evidence of thrombus within the femoral, popliteal or tibial segments. The greater saphenous veins are also within normal limits. Doppler indicates normal spontaneous flow within these segments.
[2016-06-27] VITALS: BP 136/80
[2016-06-27 04:00] VITALS: BP 141/77
[2016-06-27] MEDS: Meloxicam 15 MG TAB ORAL SCH (08:41)
[2016-06-27] MEDS: Ketorolac 30mg Inj IV PRN (09:33)
[2016-06-27 10:16] LABS: VITAMIN D 25-OH TOTAL 36 ng/mL (.)
--- NOTE | 2016-06-27 22:21 | Pulmonology Progress Note ---
Assessment/Plan Problems: (1) Acute encephalopathy (2) Achilles tendinitis, right leg Assessment/Plan neuro f/u mri of right achilles showed severe damage ortho called. Subjective Allergies: Coded Allergies: ETANERCEPT (Verified Allergy, Severe, Hives, 06/24/16) INFLIXIMAB (Verified Allergy, Severe, Anaphylaxis, 06/24/16) BUPIVACAINE (Verified Allergy, Mild, 04/30/09) Objective Last 24 Hour Vital Signs Date Time Temp Pulse Resp B/P Pulse Ox O2 Delivery O2 Flow Rate FiO2 06/27/16 04:00 97.3 74 18 141/77 95 Room Air 06/27/16 00:00 97.7 76 20 136/80 94 Room Air Intake and Output 06/26/16 06/27/16 19:00 07:00 Intake Total 1360 ml Output Total 1650 ml Balance -290 ml Intake Oral 1360 ml Output Urine Total 1650 ml # Voids 2 Objective General Appearance: WD/WN HEENT: normocephalic Respiratory/Chest: chest wall non-tender, lungs clear Cardiovascular: normal peripheral pulses, normal rate Abdomen: normal bowel sounds Genitourinary: normal external genitalia MIKAEL BLAKE Jun 27, 2016 22:21
--- NOTE | 2016-06-30 13:13 | Discharge Summary ---
Discharge Summary Hospital Course Date of Admission Jun 24, 2016 at 01:49 Date of Discharge Jun 27, 2016 at 11:50 Admitting Diagnosis ALTERED MENTAL STATUS HPI Vivian Tavera is a 60 year old female who was admitted on Jun 24, 2016 at 01:49 for Altered Mental Status Hospital Course dc summary # [id number] Discharge Medications Continued Medications: Atorvastatin Calcium* (Lipitor*) 10 Mg Tablet 10 MG ORAL BEDTIME, TAB Gabapentin* (Gabapentin*) 100 Mg Capsule 100 MG ORAL THREE TIMES A DAY, CAP Levetiracetam (Keppra) 1,000 Mg Tablet 1000 MG ORAL DAILY, #30 TAB 0 Refills Oxycodone Hcl* (Oxycodone Hcl*) 5 Mg Capsule 5 MG ORAL Q4H PRN for For Pain, CAP 0 Refills Discharge Condition Upon Discharge: stable Discharge Disposition Patient was discharged Home with Home Health services Discharge Diagnoses: Discharge Instructions Discharge Instructions Special Instructions I have been assigned to complete a D/C Summary on this account. I was not involved in the patient management Kat Henao NP ([place]) Jun 30, 2016 13:13
--- NOTE | 2016-07-01 02:18 | Discharge Summary 2 SIG ---
DATE OF ADMISSION: 06/24/2016 DATE OF DISCHARGE: 06/27/2016 The patient admitted under Dr. Whitt. REASON FOR ADMISSION: This is a 60-year-old female, who was brought with history of rheumatoid arthritis, seizure disorders, history of infected left knee, status post revision of left total knee arthropathy, presented to emergency department status post six weeks course of vancomycin and two weeks of daptomycin, presented with altered mental status. The patient appeared to be very sleepy and hard to arouse. She was not sure if she took too much of her medication. The patient has been bedbound and nonweightbearing on her left leg and had knee mobilizer. She was complaining of the right Achilles pain. She has a history of partial tear in the Achilles tendon. According to [facility], she was missing few of her [place] pills. The patient did not have any seizure activity. The patient was got by electrical instrument repairer 2 mg of Narcan without much significant relief. The patient came to emergency room for evaluation. Toxicology screen was negative. EKG shows normal sinus sinus rhythm. No ST changes. No PVC. No ectopy. Troponin was negative. The patient admitted for further management. ADMITTING DIAGNOSES: Include, 1. Acute encephalopathy. 2. Achilles tendinitis, right lower extremity, rule out acute right Achilles tear. 3. Seizure disorder. 4. Rheumatoid arthritis. 5. History of multiple surgery with infected left knee. HOSPITAL STAY: The patient admitted. Neurology consult was requested. Old narcotic and sedatives were on hold. The patient had MRI of the brain and EEG as per neurologist. EEG revealed abnormality consistent with diffuse [id number] encephalopathy. MRI of right ankle revealed a high degree of right Achilles tear. The patient was seen and evaluated by orthopedic surgeon, collateral specialist. A walking boot was dispensed. Orthopedic surgeon recommended ice and pain management with Mobic. Continue PT and weightbearing as tolerated. Outpatient followup with orthopedic surgeon, who did the surgery on her left knee. No need for surgery at this point. Orthopedic surgeon will be happy to follow this patient as outpatient as well if she prefers to go with the surgeon instead of her previous one. Neurologist closely follows. Seizure precautions maintained. No evidence of seizure activities. Keppra dose slightly titrated. Toxicology screen was negative. The patient was stable for discharge home with the home health services. Pain management provided with gabapentin and low dose of oxycodone on as needed basis. DISCHARGE DIAGNOSES: Include, 1. Acute encephalopathy. 2. Acute tear of right Achilles tendon. 3. Partial complex seizure disorder. 4. Rheumatoid arthritis. 5. History of status epilepticus with presumed anoxic encephalopathy, now with cognitive loss. 6. History of multiple surgeries of the infected left knee. Of note, left knee shows no evidence of infection status post six weeks treatment. DISCHARGE MEDICATIONS: See medication reconciliation list. DISCHARGE INSTRUCTIONS: The patient discharged home with home health services. Follow up with orthopedic surgeon either the one that the patient follows outpatient or the orthopedic surgeon the patient in the hospital. Joseph Whitt M.D. I have been assigned to dictate discharge summary on this account and I was not involved in the patient's management. Kat Piersonhudson valley hospitalFab NMaribelPMaribel DR: Juan M JOB#: [id number] CC:
== END 2016-06-27 11:50 | disposition home health service (06) | DRG 917 ==
LOC: EDBD 22:48 → EMR 23:00 → 4W 06-24 01:49 → EDBEDREQ 06-24 05:58 → 4W 06-25 08:24
DX: T40.2X1A Poisoning by other opioids, accidental (unintentional), initial encounter (principal); G92 Toxic encephalopathy; Y92.009 Unspecified place in unspecified non-institutional (private) residence as the place of occurrence of the external cause; M06.9 Rheumatoid arthritis, unspecified; G40.909 Epilepsy, unspecified, not intractable, without status epilepticus; M76.61 Achilles tendinitis, right leg; Z96.643 Presence of artificial hip joint, bilateral; Z96.653 Presence of artificial knee joint, bilateral; Z88.6 Allergy status to analgesic agent; Z88.8 Allergy status to other drugs, medicaments and biological substances
CPT/HCPCS: 36415; 70551; 80053; 80061; 80299; 80300; 81001; 82140; 82306; 82550; 82553; 82607; 84443; 84484; 85025; 85651; 86039; 93005; 93970; 94760; 95819